=== PATIENT | male | born 1945 | race Caucasian/White ===

== ENCOUNTER 2022-09-12 07:32 | Day surgery (SDC) | payer OTHER ==
[2022-09-12] MEDS ORDERED: LIDOCAINE HCL/PF 2% SDV 5ML VIAL ONE (07:42)
[2022-09-12] MEDS ORDERED: PROPOFOL 80 ML ONE (07:43)
[2022-09-12] MEDS ORDERED: PROPOFOL 20 ML ONE (07:45)
[2022-09-12 08:15] VITALS: BMI 28.8
[2022-09-12 09:24] VITALS: RESP 17
[2022-09-12 10:36] VITALS: BP 97/45; PULSE 64
[2022-09-12 10:40] VITALS: TEMP 97.5
== END 2022-09-12 09:40 | disposition home or self-care (01) ==
LOC: FASU-ENDO 07:32
PROVIDERS: ATTEND Internal Medicine Gastroenterology
PROC: 0DBN8ZX Excision of Sigmoid Colon, Via Natural or Artificial Opening Endoscopic, Diagnostic (ICD-10-PCS; principal; 2022-09-12 08:28)
DX: Z12.11 Encounter for screening for malignant neoplasm of colon (principal); Z86.010 Personal history of colon polyps; D12.7 Benign neoplasm of rectosigmoid junction; K57.30 Diverticulosis of large intestine without perforation or abscess without bleeding
CPT/HCPCS: 88305-TC